=== PATIENT | female | born 1960 | race Caucasian/White ===

== ENCOUNTER → 2017-09-03 | Outpatient (CLI) | payer OTHER | LOC: FIMAGING 15:24 | PROVIDERS: ATTEND Internal Medicine Hematology & Oncology | DX: Z12.31 Encounter for screening mammogram for malignant neoplasm of breast (principal); Z85.3 Personal history of malignant neoplasm of breast | CPT/HCPCS: G0202 ==

== ENCOUNTER 2017-12-14 06:22 | Day surgery (SDC) | payer OTHER ==
[~2017-12-14 06:22] MED LIST: ceFAZolin 2 GM/SWFI 2 GM/20 ML SYR IVP ONE
[2017-12-14] MEDS ORDERED: LIDOCAINE 1% 2 ML INJ ID PRN (06:30)
[2017-12-14] MEDS ORDERED: LR 1,000 ML IV ONE (06:30)
[2017-12-14] MEDS ORDERED: BUPIVACAINE 0.25% 30 ML SDV ONE (07:35)
[2017-12-14] MEDS ORDERED: BUPIVACAINE 0.5% 30 ML SDV ONE (07:35)
[2017-12-14] MEDS ORDERED: BUPIVACAINE/EPI 0.5% 30 ML SDV ONE (07:35)
[2017-12-14] MEDS ORDERED: ceFAZolin 1 GM/5 ML SYR ONE (07:36)
--- NOTE | 2017-12-14 07:42 | PDHPUP ---
History & Physical Update H&P update statement: This history and physical update is based on an assessment of the patient which was completed after admission or registration (within 24 hours), but prior to the surgery/procedure.
[2017-12-14] MEDS ORDERED: MIDAZOLAM 2 MG/2 ML VIAL IVP ONE (07:56)
--- NOTE | 2017-12-14 07:56 | PDANEPAE ---
ANE Past Medical History - Cardiovascular History Hx Hypertension: No Hx Arrhythmias: Yes Hx Chest Pain: No Hx Coronary Artery / Peripheral Vascular Disease: No Hx CHF / Valvular Disease: No Hx Palpitations: No - Pulmonary History Hx COPD: No Hx Asthma/Reactive Airway Disease: No Hx Recent Upper Respiratory Infection: No Hx Oxygen in Use at Home: No Hx Sleep Apnea: No Sleep Apnea Screening Result - Last Documented: Negative - Neurologic History Hx Cerebrovascular Accident: No Hx Seizures: No Hx Dementia: No - Endocrine History Hx Diabetes: No Hypothyroid: No Hyperthyroid: No Obesity: no - Renal History Hx Renal Disorders: No - Liver History Hx Hepatic Disorders: No - Neurological & Psychiatric Hx Hx Neurological and Psychiatric Disorders: No - Cancer History Hx Cancer: Yes Cancer History Comment: breast cancer - Congenital Disorder History Hx Congenital Disorders: No - GI History GERD: no Hx Gastrointestinal Disorders: No - Other Health History Other Health History: none - Chronic Pain History Chronic Pain: No - Surgical History Prior Surgeries: total hip 2013 ANE Review of Systems Review of systems is: negative Review of Systems: - Exercise capacity METS (RN): 5 METS ANE Patient History - Allergies Allergies/Adverse Reactions: Penicillins Allergy (Verified 11/10/17 10:21) - Home Medications Home medications: home medication list seen and reviewed Home Medications: Claritin 11/10/17 [Last Taken 12/13/17] Diltiazem 11/10/17 [Last Taken 12/14/17 04:30] Vitamin and Minerals 11/10/17 [Last Taken 12/07/17] - NPO status NPO Since - Liquids (Date): 12/13/17 NPO Since - Liquids (Time): 21:00 NPO Since - Solids (Date): 12/13/17 NPO Since - Solids (Time): 18:00 - Anes Hx Anes Hx: no prior problems - Smoking Hx Smoking Status: Never smoked - Family Anes Hx Family Hx Anesthesia Complications: none ANE Labs/Vital Signs - Vital Signs Blood Pressure: 141/87 Heart Rate: 77 Respiratory Rate: 16 O2 Sat (%): 96 Height: 167.64 cm Weight: 65.771 kg ANE Physical Exam - Airway Neck exam: FROM Mallampati Score: Class 2 Mouth exam: small mouth opening - Pulmonary Pulmonary: no respiratory distress - Cardiovascular Cardiovascular: regular rate and rhythym - ASA Status ASA Status: II ANE Anesthesia Plan Anesthesia Plan: GA with mask
[2017-12-14] MEDS ORDERED: fentaNYL 100 MCG/2 ML INJ ONE (07:59)
[2017-12-14] MEDS ORDERED: PROPOFOL 200 MG/20 ML VIAL ONE ×3 (07:59→08:27)
[2017-12-14] MEDS ORDERED: MIDAZOLAM 2 MG/2 ML VIAL ONE (08:01)
[2017-12-14] MEDS ORDERED: LIDOCAINE 2% 5 ML SDV ONE (08:02)
[2017-12-14] MEDS ORDERED: PROMETHAZINE HCL 25 MG/ML INJ IVP PRN (08:39)
[2017-12-14] MEDS ORDERED: HYDROCODONE/APAP 5/325 TAB PO PRN (08:39)
[2017-12-14] MEDS ORDERED: ACETAMINOPHEN 500 MG TAB PO PRN (08:39)
[2017-12-14] MEDS ORDERED: OXYCODONE/APAP 5/325 TAB PO PRN (08:39)
[2017-12-14] MEDS ORDERED: ONDANSETRON 4 MG/2 ML VIAL IVP PRN (08:39)
[2017-12-14] MEDS ORDERED: HYDROmorphONE/DILAUDID 1 MG/ML INJ IVP PRN (08:39)
[2017-12-14] MEDS ORDERED: LR 500 ML IV PRN (08:39)
[2017-12-14] MEDS ORDERED: ALBUTEROL 3 ML DEYVIAL IH PRN (08:39)
[2017-12-14] MEDS ORDERED: NALOXONE HCL 0.4 MG/ML INJ IVP PRN (08:39)
[2017-12-14] MEDS ORDERED: fentaNYL 100 MCG/2 ML INJ IVP PRN (08:39)
[2017-12-14] MEDS ORDERED: PHENYLEPHRINE HCL 100 MCG/ML SYR ONE (08:55)
[2017-12-14] MEDS ORDERED: KETOROLAC 30 MG/1 ML SDV ONE (09:13)
--- NOTE | 2017-12-14 09:37 | POSTANESTH ---
Post Anesthetic Evaluation Cardiovascular Status: Normal, Stable Respiratory Status: Normal, Stable Level of Consciousness/Mental Status: Can Participate in Eval Pain Control: Adequate, Prn Tx Ordered Nausea/Vomiting Control: Adequate, Prn Tx Ordered Complications Possibly Related to Anesthesia: None Noted
[2017-12-14 09:44] VITALS: TEMP 97.7
[2017-12-14 10:34] VITALS: BP 107/84; PULSE 60; RESP 17; O2SAT 95
--- NOTE | 2017-12-14 16:11 | GOP ---
[f rep st] OPERATIVE REPORT DATE OF OPERATION: 12/14/2017 SURGEON: Jerson Bustos DPM SENIOR CLIMATE ADVISOR: Tavo. ANESTHESIOLOGIST: Dr. Arriaza . PREOPERATIVE DIAGNOSIS: 1. Hallux rigidus. 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 4. Loose bodies in joint. POSTOPERATIVE DIAGNOSIS: PROCEDURE PERFORMED: 1. Modified Diaz/Fierro bunionectomy with osteotomy of large medial and dorsal hyperostoses. 2. Stepdown osteotomy, 1st metatarsal neck level with screw fixation. 3. Phalangeal osteotomy with screw fixation. 4. Excision of loose bodies. All procedures right foot. FINDINGS: DESCRIPTION OF PROCEDURE: The patient was taken to the operating room and placed on the table in a s upine position. Local anesthetic was administered by Dr. Bustos during concomitant IV sedation by An esthesia. The patient's right foot, ankle, and lower leg were prepped and draped in the usual asepti c manner, establishing a sterile field for surgery. Disposable pneumatic tourniquet over heavy Kerli x padding at ankle level was inflated to 225 mmHg following sterile Esmarch bandage exsanguination of the foot. This provided intraoperative hemostasis. A skin knife made a 9 cm linear incision medial to the extensor tendon. This incision was deepened, bleeding vessels clamped and Bovied, vital stru ctures identified and retracted. Soft tissue planes were developed about the dorsal and medial aspec ts of the joint, and the joint was entered with a T-shaped capsulotomy. Capsule and periosteum were reflected from about the head and neck of the metatarsal and the base of the proximal phalanx, exposi ng the circumferential arthritic lipping consistent with patient's diagnosis and preoperative x-ray s tudies. In a systematic fashion, joint remodeling was performed. The oscillating saw was utilized t o remove the medial hyperostosis. Bone rongeurs and a bur were utilized to remodel the dorsal aspect of the metatarsal head and proximal phalangeal base. The metatarsal head was inspected and grade 4 chondromalacic change was present in approximately 25% of the metatarsal head. Loose cartilage edges were trimmed and utilizing 0.028 Fan wire, microfracture was performed, allowing for vasculari zation for fibrocartilage replacement. A bur had smoothed all cut bone edges and irrigation was util ized during microfracture to prevent bone burning. Now, a 0.045 Fan wire was drive to function as apex for osteotomy guide, which was employed to preform a stepdown osteotomy at the 1st metatarsa l neck level. Temporary fixation was with K-wire. Permanent fixation was with 2.4 mm cortical screw from the [employer] modular handset. Two screws were used and with appropriate AO technique, fixation was firm and the apposition excellent. Alignment of the hallux was now evaluated, and due to the con genital anomaly of the toe, phalangeal osteotomy was indicated. An obliquely oriented wedge osteotom y allowed for alignment of the hallux in the transverse plane. Fixation here with the 2.0 mm cortica l screw, again with appropriate AO technique, fixation firm and the apposition excellent. Upon enter ing the joint, multiple loose bodies were found and removed. Betadine-soaked Adaptic was laid over t he incision. The foot received a complete sterile dressing. Tourniquet was released. Digital circu lation returned to normal immediately. Hemostasis was well maintained. The patient was taken to [facility] in good condition, having tolerated surgery and anesthesia well. Estimated blood loss minimal. No specimen. No complications. Postoperative instructions previously gone over were re-enforced and the prognosis is good. SNR including below. /[id number]/MODL
== END 2017-12-14 10:55 | disposition home or self-care (01) ==
LOC: FSGY 06:22
PROVIDERS: ATTEND Podiatrist Primary Podiatric Medicine
PROC: 0QSN04Z Reposition Right Metatarsal with Internal Fixation Device, Open Approach (ICD-10-PCS; principal; 2017-12-14 08:15)
PROC: 0QBN0ZZ Excision of Right Metatarsal, Open Approach (ICD-10-PCS; principal; 2017-12-14 08:15)
PROC: 0QSQ04Z Reposition Right Toe Phalanx with Internal Fixation Device, Open Approach (ICD-10-PCS; principal; 2017-12-14 08:15)
PROC: 0SC Lower Joints, Extirpation (ICD-10-PCS; principal; 2017-12-14 08:15)
DX: M20.21 Hallux rigidus, right foot (principal); M20.22 Hallux rigidus, left foot; M24.074 Loose body in right toe joint(s); Q66.21 Congenital metatarsus primus varus; Q66.89 Other specified congenital deformities of feet; Z85.3 Personal history of malignant neoplasm of breast
CPT/HCPCS: C1713; J0171; J0690; J1885; J2250; J2370; J2704; J3010

== ENCOUNTER → 2018-03-23 | Outpatient (CLI) | payer OTHER | LOC: FIMAGING 15:05 | PROVIDERS: ATTEND Internal Medicine | DX: S69.81XA Other specified injuries of right wrist, hand and finger(s), initial encounter (principal); W19.XXXA Unspecified fall, initial encounter ==

== ENCOUNTER → 2018-03-29 | Outpatient (CLI) | payer OTHER | LOC: FIMAGING 15:31 | PROVIDERS: ATTEND Specialist | DX: M25.532 Pain in left wrist (principal); S52.615G Nondisplaced fracture of left ulna styloid process, subsequent encounter for closed fracture with delayed healing; S63.592A Other specified sprain of left wrist, initial encounter; M65.842 Other synovitis and tenosynovitis, left hand ==

== ENCOUNTER 2018-04-06 12:16 | Day surgery (SDC) | payer OTHER ==
[2018-04-06] MEDS ORDERED: LR 1,000 ML IV ONE (12:36)
[2018-04-06] MEDS ORDERED: BUPIVACAINE 0.5% 30 ML SDV ONE (13:27)
--- NOTE | 2018-04-06 13:59 | PDANEPAE ---
ANE History of Present Illness R styloid resection ANE Past Medical History - Cardiovascular History Hx Hypertension: No Hx Arrhythmias: Yes Hx Chest Pain: No Hx Coronary Artery / Peripheral Vascular Disease: No Hx CHF / Valvular Disease: No Hx Palpitations: No Cardiovascular History Comment: svt - Pulmonary History Hx COPD: No Hx Asthma/Reactive Airway Disease: No Hx Recent Upper Respiratory Infection: No Hx Oxygen in Use at Home: No Hx Sleep Apnea: No Sleep Apnea Screening Result - Last Documented: Negative - Neurologic History Hx Cerebrovascular Accident: No Hx Seizures: No Hx Dementia: No - Endocrine History Hx Diabetes: No - Renal History Hx Renal Disorders: No - Liver History Hx Hepatic Disorders: No - Neurological & Psychiatric Hx Hx Neurological and Psychiatric Disorders: No - Cancer History Hx Cancer: Yes Cancer History Comment: breast cancer - Congenital Disorder History Hx Congenital Disorders: No - GI History Hx Gastrointestinal Disorders: No - Other Health History Other Health History: none - Chronic Pain History Chronic Pain: No - Surgical History Prior Surgeries: total hip 2013 ANE Review of Systems Review of Systems: - Exercise capacity METS (RN): 5 METS ANE Patient History - Allergies Allergies/Adverse Reactions: Penicillins Allergy (Verified 04/02/18 12:27) Hives - Home Medications Home medications: home medication list seen and reviewed Home Medications: Claritin 11/10/17 [Last Taken 04/02/18] Diltiazem 11/10/17 [Last Taken 04/06/18] Vitamin and Minerals 11/10/17 [Last Taken 04/02/18] - NPO status NPO Status: no food or drink >8 hours NPO Since - Liquids (Date): 04/06/18 NPO Since - Liquids (Time): 06:00 NPO Since - Solids (Date): 04/05/18 NPO Since - Solids (Time): 18:00 - Anes Hx Anes Hx: no prior problems - Smoking Hx Smoking Status: Never smoked - Alcohol Use Alcohol Use: None - Family Anes Hx Family Anes Hx: none Family Hx Anesthesia Complications: none ANE Labs/Vital Signs - Vital Signs Blood Pressure: 138/83 Heart Rate: 67 Respiratory Rate: 16 O2 Sat (%): 97 Height: 167.64 cm Weight: 56.699 kg ANE Physical Exam - Airway Neck exam: FROM Mallampati Score: Class 2 Mouth exam: normal dental/mouth exam - Pulmonary Pulmonary: no respiratory distress - Cardiovascular Cardiovascular: regular rate and rhythym - ASA Status ASA Status: II ANE Anesthesia Plan Anesthesia Plan: GA w LMA (as case progresses), GA with mask
[2018-04-06] MEDS ORDERED: CEFAZOLIN 1 GM/DEXTROSE/50 ML BAG IV ONE (14:02)
[2018-04-06] MEDS ORDERED: PROPOFOL/EMULSION 500 MG/50 ML BOTTLE IV ONE ×2 (14:12→14:50)
[2018-04-06] MEDS ORDERED: fentaNYL 100 MCG/2 ML INJ ONE (14:12)
[2018-04-06] MEDS ORDERED: LIDOCAINE 2% 100 MG/5 ML SYR ONE (14:14)
[2018-04-06] MEDS ORDERED: LIDOCAINE 2% JELLY 5 ML TUBE ONE (14:29)
[2018-04-06] MEDS ORDERED: ACETAMINOPHEN 500 MG TAB PO PRN (15:12)
[2018-04-06] MEDS ORDERED: HYDROCODONE/APAP 5/325 TAB PO PRN (15:12)
[2018-04-06] MEDS ORDERED: MEPERIDINE 25 MG/0.5 ML AMP IVP PRN (15:12)
[2018-04-06] MEDS ORDERED: DEXAMETHASONE 4 MG/ML VIAL IVP PRN (15:12)
[2018-04-06] MEDS ORDERED: METOCLOPRAMIDE 10 MG/2 ML VIAL IVP PRN (15:12)
[2018-04-06] MEDS ORDERED: ONDANSETRON 4 MG/2 ML VIAL IVP PRN (15:12)
[2018-04-06] MEDS ORDERED: PHENYLEPHRINE HCL 100 MCG/ML SYR IVP PRN (15:12)
[2018-04-06] MEDS ORDERED: LABETALOL HCL 5 MG/ML 20 ML MDV IVP PRN (15:12)
[2018-04-06] MEDS ORDERED: fentaNYL 100 MCG/2 ML INJ IVP PRN (15:12)
[2018-04-06] MEDS ORDERED: PROMETHAZINE HCL 25 MG/ML INJ IVP PRN (15:12)
[2018-04-06] MEDS ORDERED: NALOXONE HCL 0.4 MG/ML INJ IVP PRN (15:12)
[2018-04-06] MEDS ORDERED: LR 500 ML IV PRN (15:12)
[2018-04-06] MEDS ORDERED: ALBUTEROL 3 ML DEYVIAL IH PRN (15:12)
[2018-04-06] MEDS ORDERED: oxyCODONE IR 5 MG TAB PO PRN (15:12)
--- NOTE | 2018-04-06 15:32 | POSTOPPROG ---
Post Op Note Date of Operation: 04/06/18 Surgeon: Wayne Capellan [employer] Goods: none Anesthesiologist: Messi Mcelroy Anesthesia: IV Sedation Pre-op Diagnosis: Right ulnar styloid fracture non union Post-op Diagnosis: same Indication: pain Procedure: Excision of nonunion fragment, excision and bone graft of cyst and debridem Findings: non union fracture with cystic change Inf/Abcess present in the surg proc area at time of surgery?: No Depth: Deep Incisional (Fascial) EBL: Minimal Total fluids administered: 600cc Complications: none Specimen(s): cyatic mass sent to pathology
--- NOTE | 2018-04-06 15:38 | PDHPUP ---
History & Physical Update H&P update statement: This history and physical update is based on an assessment of the patient which was completed after admission or registration (within 24 hours), but prior to the surgery/procedure. H&P update: no change in patient's condition since H&P completed
[2018-04-06] MEDS ORDERED: HYDROCODONE/APAP 5/325 TAB ONE (16:01)
--- NOTE | 2018-04-06 16:10 | GOP ---
[f rep st] OPERATIVE REPORT DATE OF OPERATION: 04/06/2018 SURGEON: Wayne Capellan MD PREOPERATIVE DIAGNOSIS: Right ulnar styloid nonunion fracture with extensor carpi ulnaris tendon abr asion and lytic mass, distal shaft, right ulna. POSTOPERATIVE DIAGNOSIS: Right ulnar styloid nonunion fracture with extensor carpi ulnaris tendon ab rasion and lytic mass, distal shaft, right ulna. PROCEDURE PERFORMED: Excision of right ulnar styloid nonunion fragment, curettage and bone graft of cystic lesion, distal ulna, and extensor carpi ulnaris tendon debridement. FINDINGS: INDICATIONS: This patient had ulnar-sided right wrist swelling and tenderness, and on x-ray had, an ulnar styloid nonunion and also a cystic mass at the distal ulna. It was felt that because of persis tent symptoms and swelling, and the fact that the cystic lesion was going to prevent healing of the u lnar styloid, it was felt that surgical treatment at this point was a good option for her. DESCRIPTION OF PROCEDURE: Under IV general anesthesia, and with local infiltration of the operative area with 0.5% plain Marcaine, the patient's right arm was prepped and draped in the usual fashion. Arm tourniquet applied at 250 mmHg. The wrist traction tower was applied at 10 pounds of longitudina l traction. A C-shaped incision was made based palmarly at the ulnar styloid area and the incision l ength was approximately 1.5 inches. Skin flap was elevated palmarly and the extensor retinaculum and the 6th dorsal compartment was elevated from the distal ulna. The ulnar styloid fragment was identi fied and that was from surrounding soft tissue, including the ulnar margin of the triangula r cartilage, and then the fragment was excised. The bone cyst, which contained not only gelatinous f luid, but also some soft tissue material, was curetted out, and that cystic material was sent to path ology for evaluation. The cyst was curetted out completely and it did have a sclerotic circumference , which was curetted carefully also, and then bone graft was packed into the cyst and the area of mj rounding cancellous bone, creating a nice smooth surface at the ulnar aspect of the distal ulna. The extensor carpi ulnaris tendon had been abraded against the fracture site that had fraying on its und ersurface and about 20% of the tendon had been abraded away. That was debrided back to healthy thomas h tendon and then soft tissue was interposed between the tendon and the underlying ulnar bone, creati ng a nice smooth sliding surface. That sliding surface was some 6th dorsal compartment tissue, which was under-sewn under the tendon and then remaining 6th dorsal compartment and extensor retinaculum w ere sewn over the tendon. This created a tendon tunnel of healthy soft tissue. The gliding of the t endon was tested and then 0.5% plain Marcaine was instilled in the operative area, skin closed with h orizontal mattress sutures of 5-0 Prolene. A bulky soft pressure dressing was applied, followed by a palmar-based fiberglass splint held in place with an Cj bandage. She tolerated the procedure well. There were no complications. Tourniquet deflation resulted in immediate pinking of the digits. Mary head was brought to the recovery area where detailed postoperative instructions were given prior to disc harge. A prescription for [place] and Keflex was provided. She had been given a gram of Ancef prior t o commencement of surgery. Followup arrangements in the office for about a week postop for dressing and suture removal and gentle remobilization of the wrist with a Futuro-type Velcro strap splint to fanny e worn when up and around and at night in bed for 3 weeks. /[id number]/MODL
[2018-04-06 16:28] VITALS: BP 130/91
== END 2018-04-06 16:30 | disposition home or self-care (01) ==
LOC: FSGY 12:16
PROVIDERS: ATTEND Specialist
PROC: 0PBK0ZZ Excision of Right Ulna, Open Approach (ICD-10-PCS; principal; 2018-04-06 13:45)
PROC: 0PBK0ZX Excision of Right Ulna, Open Approach, Diagnostic (ICD-10-PCS; principal; 2018-04-06 13:45)
PROC: 0PUK07Z Supplement Right Ulna with Autologous Tissue Substitute, Open Approach (ICD-10-PCS; principal; 2018-04-06 13:45)
DX: S52.611K Displaced fracture of right ulna styloid process, subsequent encounter for closed fracture with nonunion (principal); M85.631 Other cyst of bone, right forearm; S56.501A Unspecified injury of other extensor muscle, fascia and tendon at forearm level, right arm, initial encounter
CPT/HCPCS: C1713; J0690; J2001; J2704; J3010

== ENCOUNTER → 2018-09-09 | Outpatient (CLI) | payer OTHER | LOC: FIMAGING 15:37 | PROVIDERS: ATTEND Internal Medicine Hematology & Oncology | DX: Z12.31 Encounter for screening mammogram for malignant neoplasm of breast (principal) ==

== ENCOUNTER → 2019-04-13 | Outpatient (CLI) | payer OTHER | LOC: FIMAGING 08:42 | PROVIDERS: ATTEND Internal Medicine | DX: Z13.820 Encounter for screening for osteoporosis (principal) ==